=== PATIENT | male | born 1975 | race Caucasian/White ===

== ENCOUNTER 2020-01-04 18:25 | Emergency (ER) | payer BC ==
[2020-01-04 18:39] VITALS: BP 125/90; PULSE 87; TEMP 99.1; BMI 29.7
[2020-01-04] MEDS ORDERED: IBUPROFEN 600 MG TABLET (FP) PO ONE (18:43)
--- NOTE | 2020-01-04 18:52 | PDOC ---
History of Present Illness - General Chief Complaint: Headache Stated Complaint: FEVER & COUGH Time Seen by Provider: 01/04/20 18:28 History Source: Patient Exam Limitations: No Limitations Past History - Past Medical History Allergies/Adverse Reactions: Allergies Allergy/AdvReac Type Severity Reaction Status Date / Time No Known Allergies Allergy Verified 01/04/20 18:39 Asthma: Yes Cancer: Yes ([facility]ON) COPD: No - Immunization History Immunization Up to Date: Yes - Psycho Social/Smoking Cessation Hx Smoking History: Never smoked Have you smoked in the past 12 months: No Information on smoking cessation initiated: No Hx Alcohol Use: No Drug/Substance Use Hx: No *Physical Exam - Vital Signs Last Vital Signs Temp Pulse Resp BP Pulse Ox 99.1 F 87 17 125/90 97 01/04/20 18:28 01/04/20 18:28 01/04/20 18:28 01/04/20 18:28 01/04/20 18:28 - Physical Exam General Appearance: No: Apparent Distress HEENT: positive: Normal Voice, Nasal Congestion (minimal). negative: Muffled/Hoarse voice, Pharyngeal Erythema, Tonsillar Exudate, Tonsillar Erythema, Rhinorrhea Neck: positive: Supple. negative: Rigid Respiratory/Chest: positive: Lungs Clear, Normal Breath Sounds. negative: Respiratory Distress Cardiovascular: positive: Regular Rhythm, Regular Rate, S1, S2. negative: Murmur Gastrointestinal/Abdominal: positive: Normal Bowel Sounds, Soft. negative: Tender, Distended, Guarding, Rebound Integumentary: positive: Normal Color Neurologic: positive: Alert Medical Decision Making - Medical Decision Making 44 y/o M hx of HIV, asthma presents with fever x 3 days (Tmax 100.6). Went to urgent care today, where he had temp of 100.2 (not given any meds) and told to come to ED for possible r/o meningitis. Denies sore throat, cough, sob, cp, abd pain,n/v/d, urinary sxs, neck stiffness, recent travel. Denies possible contact with anyone who had COVID19. Did not take any antipyretics today Temp checked here twice and it is 99.1 Patient has not taken any antipyretics today, appears well, with no concerns for meningitis Also unlikely COVID given afebrile with no other symptoms D/W Dr. Verduzco - agrees with no need for COVID testing Patient with no other sxs Stable for dc Return precautions given 01/04/20 18:44 Discharge - Discharge Information Problems reviewed: Yes Clinical Impression/Diagnosis: Viral URI Condition: Stable Disposition: HOME - Admission No - Additional Discharge Information Prescription Drug Monitoring Program (I-STOP) results: I-STOP not reviewed - Follow up/Referral - Patient Discharge Instructions Patient Printed Discharge Instructions: DI for Viral Upper Respiratory Infection -- Adult Additional Instructions: Please see attached instructions - Post Discharge Activity
== END 2020-01-04 18:59 | disposition home or self-care (01) ==
LOC: JER 18:25
DX: J06.9 Acute upper respiratory infection, unspecified (principal); B97.89 Other viral agents as the cause of diseases classified elsewhere; J45.909 Unspecified asthma, uncomplicated; Z21 Asymptomatic human immunodeficiency virus [HIV] infection status; Z85.038 Personal history of other malignant neoplasm of large intestine
CPT/HCPCS: 99282-25

== ENCOUNTER 2020-09-07 05:08 | Day surgery (SDC) | payer BC ==
[2020-09-06 13:22] VITALS: BMI 30.4
[2020-09-07 12:01] VITALS: TEMP 98.4
[2020-09-07 12:58] VITALS: BP 118/80; PULSE 52
== END 2020-09-07 12:58 | disposition home or self-care (01) ==
LOC: JASU-ENDO 05:08
PROVIDERS: ATTEND Internal Medicine Gastroenterology
PROC: 0DBP8ZX Excision of Rectum, Via Natural or Artificial Opening Endoscopic, Diagnostic (ICD-10-PCS; principal; 2020-09-07 10:30)
DX: Z08 Encounter for follow-up examination after completed treatment for malignant neoplasm (principal); Z85.038 Personal history of other malignant neoplasm of large intestine; K62.6 Ulcer of anus and rectum; Z86.711 Personal history of pulmonary embolism; Z86.19 Personal history of other infectious and parasitic diseases; Z98.0 Intestinal bypass and anastomosis status
CPT/HCPCS: 88305-TC

== ENCOUNTER 2020-09-19 17:22 | Emergency (ER) | payer BC ==
[2020-09-19 17:54] VITALS: BP 114/94; PULSE 76; BMI 30.4
[2020-09-19] MEDS ORDERED: METHOCARBAMOL 500 MG TABLET PO ONE (18:30)
[2020-09-19] MEDS ORDERED: KETOROLAC TROMETHAMINE 30 MG/1 ML VIAL IM ONE (18:30)
[2020-09-19] MEDS ORDERED: METHOCARBAMOL 500 MG TABLET ONE (18:33)
[2020-09-19] MEDS ORDERED: KETOROLAC TROMETHAMINE 30 MG/1 ML VIAL ONE (18:33)
[2020-09-19] MEDS ORDERED: LIDOCAINE 5% TOPICAL PATCH ONE (18:36)
[2020-09-19] MEDS ORDERED: LIDOCAINE 5% TOPICAL PATCH TP ONE (18:36)
== END 2020-09-19 18:49 | disposition home or self-care (01) ==
LOC: JERFT 17:22
PROC: 3E0233Z Introduction of Anti-inflammatory into Muscle, Percutaneous Approach (ICD-10-PCS; principal; 2020-09-19)
DX: M54.42 Lumbago with sciatica, left side (principal)
CPT/HCPCS: 99284-25

== ENCOUNTER 2021-06-13 22:11 | Emergency (ER) | payer BC ==
[2021-06-13 23:06] VITALS: BMI 30.7
[2021-06-13] MEDS ORDERED: ACETAMINOPHEN 500 MG TABLET (FP) PO ONE (23:46)
[2021-06-14] MEDS ORDERED: SODIUM CHLORIDE IV ONE (00:20)
[2021-06-14] MEDS ORDERED: VANCOMYCIN 1 GM in D5W (PRE-DOCKED) 1,000 MG/250 ML IVPB ONE (00:34)
[2021-06-14] MEDS ORDERED: PIPERACILLIN/TAZOB 4.5 GM 4.5 GM in DEXTROSE 5%-WATER 100 ML IVPB ONE (00:34)
[2021-06-14] MEDS ORDERED: ACETAMINOPHEN INJECTION 100 ML IVPB ONE (00:54)
[2021-06-14 01:01] LABS: BASO % 0.6 % (0-2.0); EOS % 0.1 % (0-4.5); HEMATOCRIT 43.4 % (35.4-49); HEMOGLOBIN 14.7 GM/dL (11.7-16.9); LYMPH % 17.1 % (8-40); MCH 28.4 pg (25.7-33.7); MCHC 33.8 g/dl (32.0-35.9); MEAN CELL VOLUME 84.1 fl (80-96); MONO % 10.4 % (3.8-10.2); NEUT % 71.8 % (42.8-82.8); PLATELET COUNT 240 10^3/uL (134-434); RBC 5.16 M/mm3 (4.00-5.60); WHITE BLOOD COUNT 12.1 K/mm3 (4.0-10.0)
[2021-06-14 01:05] LABS: INR 1.13 (0.83-1.09); PROTHROMBIN TIME (PATIENT) 13.9 SEC (9.7-13.0)
[2021-06-14] MEDS ORDERED: ACETAMINOPHEN 1000 MG/100 ML VIAL (NON FORMULARY) IVPB ONE (01:07)
[2021-06-14 01:08] LABS: ACTIVATED PTT 32.6 SECONDS (25.2-36.5)
[2021-06-14] MEDS ORDERED: VANCOMYCIN 1 GRAM (PRE-DOCKED) 1,000 MG/250 ML BAG IVPB ONE (01:10)
[2021-06-14 01:17] LABS: CHLORIDE 103 mmol/L (98-107); SODIUM 137 mmol/L (136-145)
[2021-06-14] MEDS ORDERED: PIPERACILLIN/TAZOB 4.5 GM 4.5 GM/100 ML BAG IVPB ONE (01:18)
[2021-06-14 01:19] LABS: CALCIUM 9.1 mg/dL (8.5-10.1)
[2021-06-14 01:20] LABS: ALBUMIN 3.8 g/dl (3.4-5.0); ANION GAP 10 MMOL/L (8-16); BLOOD UREA NITROGEN 18.6 mg/dL (7-18); CO2 24 mmol/L (21-32); GLUCOSE,RANDOM 111 mg/dL (74-106)
[2021-06-14 01:23] LABS: CREATININE 1.3 mg/dL (0.55-1.3); SGOT/AST 11 U/L (15-37); SGPT/ALT 26 U/L (13-61)
[2021-06-14 01:24] LABS: BILIRUBIN,TOTAL 0.4 mg/dL (0.2-1)
[2021-06-14 01:25] LABS: TOT PROT 7.9 g/dl (6.4-8.2)
[2021-06-14 01:26] LABS: ALK PHOS 99 U/L (45-117)
[2021-06-14 02:51] LABS: URINE APPEARANCE CLEAR; URINE BILIRUBIN NEGATIVE (NEGATIVE); URINE COLOR YELLOW; URINE GLUCOSE (UA) NEGATIVE (NEGATIVE); URINE KETONE NEGATIVE (NEGATIVE); URINE LEUK ESTERASE NEGATIVE (NEGATIVE); URINE NITRITE NEGATIVE (NEGATIVE); URINE PROTEIN NEGATIVE (NEGATIVE); URINE UROBILINOGEN 0.2 mg/dL (0.2-1.0)
[2021-06-14] MEDS ORDERED: KETOROLAC TROMETHAMINE 30 MG/1 ML VIAL IVPUSH ONE (07:44)
[2021-06-14] MEDS ORDERED: KETOROLAC TROMETHAMINE 30 MG/1 ML VIAL ONE (07:55)
[2021-06-14 10:38] VITALS: BP 124/81; PULSE 77; TEMP 98
== END 2021-06-14 10:20 | disposition short-term general hospital (02) ==
LOC: JER 22:11
PROC: 3E033GC Introduction of Other Therapeutic Substance into Peripheral Vein, Percutaneous Approach (ICD-10-PCS; principal; 2021-06-13)
DX: M54.2 Cervicalgia (principal); R50.9 Fever, unspecified; B20 Human immunodeficiency virus [HIV] disease
CPT/HCPCS: 36415; 70491-TC; 71045-TC-FY; 80053; 81003; 83605; 84484; 85025; 85610; 85730; 87040; 87086; 87880; 93005; 93010; 99285-25; C9803; J0131; U0003; U0005

== ENCOUNTER 2022-02-27 16:53 | Emergency (ER) | payer OTHER ==
[2022-02-27 17:27] VITALS: BP 120/72; PULSE 75; TEMP 98.7; BMI 31.0
== END 2022-02-27 18:42 | disposition home or self-care (01) ==
LOC: JER 16:53
DX: R05.1 Acute cough (principal); R09.81 Nasal congestion; Z11.52 Encounter for screening for COVID-19
CPT/HCPCS: 0241U-QW; 87807; 99283-25; C9803-CS; U0003; U0005

== ENCOUNTER 2023-04-06 17:10 | Emergency (ER) | payer BC, OTHER ==
[2023-04-06 17:18] VITALS: BP 128/83; PULSE 75; RESP 18; TEMP 97.8; BMI 30.5
[2023-04-06] MEDS ORDERED: PENICILLIN G BENZATHINE 2,400,000 UNIT/4 ML PFS IM ONE (18:51)
[2023-04-06] MEDS ORDERED: PENICILLIN G BENZATHINE 1,200,000 UNIT/2 ML PFS IM ONE ×2 (18:55→18:56)
== END 2023-04-06 19:50 | disposition home or self-care (01) ==
LOC: JERFT 17:10
DX: A53.9 Syphilis, unspecified (principal)
CPT/HCPCS: 99284-25

== ENCOUNTER 2023-12-18 15:48 | Emergency (ER) | payer BC, OTHER ==
[2023-12-18 16:13] VITALS: RESP 18; BMI 29.5
[2023-12-18] MEDS ORDERED: MAG HYDROX/AL HYDROX/SIMETH 30 ML UNIT-DOSE CUP ONE (17:58)
[2023-12-18] MEDS ORDERED: FAMOTIDINE 20 MG/50 ML IVPB 20 MG/50 ML MG IVPB ONE (17:59)
[2023-12-18 18:12] LABS: BASO % 0.4 % (0-2.0); EOS % 1.6 % (0-4.5); HEMATOCRIT 41.4 % (35.4-49); HEMOGLOBIN 14.4 GM/dL (11.7-16.9); LYMPH % 39.8 % (8-40); MCH 29.6 pg (25.7-33.7); MCHC 34.8 g/dl (32.0-35.9); MEAN CELL VOLUME 85.1 fl (80-96); MONO % 9.3 % (3.8-10.2); NEUT % 48.9 % (42.8-82.8); PLATELET COUNT 265 10^3/uL (134-434); RBC 4.86 M/mm3 (4.00-5.60); RDW 13.4 % (11.9-15.9); WHITE BLOOD COUNT 7.7 K/mm3 (4.0-10.0)
[2023-12-18] MEDS: FAMOTIDINE 20 MG/50 ML IVPB 20 MG/50 ML MG IVPB ONE (18:31)
[2023-12-18] MEDS: MAG HYDROX/AL HYDROX/SIMETH 30 ML UNIT-DOSE CUP PO ONE (18:31)
[2023-12-18 18:46] LABS: POTASSIUM 3.9 mmol/L (3.5-5.1)
[2023-12-18 18:48] LABS: ALBUMIN 3.5 g/dl (3.4-5.0); CALCIUM 8.9 mg/dL (8.5-10.1)
[2023-12-18 18:49] LABS: BLOOD UREA NITROGEN 11.4 mg/dL (7-18)
[2023-12-18 18:51] LABS: CREATININE 0.9 mg/dL (0.55-1.3)
[2023-12-18 18:53] LABS: BILIRUBIN,TOTAL 0.3 mg/dL (0.2-1); TOT PROT 6.8 g/dl (6.4-8.2)
[2023-12-18 23:09] VITALS: BP 122/79; PULSE 77; TEMP 98.2
[2023-12-18 23:54] LABS: PH,URINE 5.5 (5.0-8.0); URINE APPEARANCE Clear; URINE BILIRUBIN Negative (NEGATIVE); URINE COLOR Yellow; URINE GLUCOSE (UA) Negative (NEGATIVE); URINE KETONE Negative (NEGATIVE); URINE LEUK ESTERASE Negative (NEGATIVE); URINE NITRITE Negative (NEGATIVE); URINE PROTEIN Negative (NEGATIVE)
== END 2023-12-19 01:10 | disposition home or self-care (01) ==
LOC: JER 15:48
PROC: 3E033GC Introduction of Other Therapeutic Substance into Peripheral Vein, Percutaneous Approach (ICD-10-PCS; principal; 2023-12-18)
DX: R10.13 Epigastric pain (principal); R10.33 Periumbilical pain; R11.10 Vomiting, unspecified; R14.0 Abdominal distension (gaseous); K52.9 Noninfective gastroenteritis and colitis, unspecified
CPT/HCPCS: 36415; 74177-TC; 80053; 81003; 83690; 84484; 85025; 87086; 93005; 93010; 99285-25

== ENCOUNTER 2024-08-25 05:23 | Day surgery (SDC) | payer BC ==
[2024-08-21 13:34] VITALS: BMI 32.1
[2024-08-25] MEDS ORDERED: HEPARIN NA (PORCINE) 5,000 UNITS/ML 1ML VIAL ONE (13:35)
[2024-08-25] MEDS ORDERED: BUPIVACAINE HCL/PF 0.25% (2.5MG/ML) 10 ML VIAL ONE (13:35)
[2024-08-25] MEDS ORDERED: LIDOCAINE HCL/PF 2% SDV 5ML VIAL ONE (13:41)
[2024-08-25] MEDS ORDERED: PROPOFOL 20 ML ONE (13:42)
[2024-08-25] MEDS ORDERED: ROCURONIUM BROMIDE 50 MG/5 ML SYRINGE ONE (13:42)
[2024-08-25] MEDS ORDERED: MIDAZOLAM HCL 2 MG/2 ML SINGLE DOSE VIAL ONE (13:42)
[2024-08-25] MEDS ORDERED: ONDANSETRON 4 MG/2 ML VIAL IVPUSH PRN (13:48)
[2024-08-25] MEDS ORDERED: LACTATED RINGERS SOLUTION 1,000 ML IV SCH (14:00)
[2024-08-25] MEDS: ceFAZolin SODIUM 1 GM VIAL IVPB ONE (14:55)
[2024-08-25] MEDS ORDERED: ceFAZolin SODIUM 1 GM VIAL ONE (14:55)
[2024-08-25] MEDS ORDERED: DEXAMETHASONE SOD PHOSPHATE 4 MG/1 ML VIAL ONE (15:09)
[2024-08-25] MEDS ORDERED: ONDANSETRON 4 MG/2 ML VIAL ONE (16:55)
[2024-08-25] MEDS ORDERED: SUGAMMADEX SODIUM 200 MG/2 ML VIAL ONE (16:55)
[2024-08-25] MEDS ORDERED: ACETAMINOPHEN INJECTION 100 ML ONE (16:58)
[2024-08-25 19:00] VITALS: RESP 16; TEMP 97.7
[2024-08-25] MEDS ORDERED: oxyCODONE HCL 5 MG TABLET ONE (19:18)
[2024-08-25] MEDS: oxyCODONE HCL 5 MG TABLET PO PRN (19:19)
[2024-08-25 20:24] VITALS: BP 137/83; PULSE 75
[2024-08-25] MEDS ORDERED: ACETAMINOPHEN 325 MG TABLET (FP) PO SCH (21:00)
[2024-08-26] MEDS ORDERED: DARUNAVIR 800 MG/COBICISTAT 150MG TABLET PO SCH (10:00)
[2024-08-26] MEDS ORDERED: DOLUTEGRAVIR SODIUM 50 MG TABLET (NON-FORMULARY) PO SCH (10:00)
== END 2024-08-25 20:29 | disposition home or self-care (01) ==
LOC: JASU-SURG 05:23
PROVIDERS: ATTEND Surgery
PROC: 8E0W4CZ Robotic Assisted Procedure of Trunk Region, Percutaneous Endoscopic Approach (ICD-10-PCS; 2024-08-25)
PROC: 0WUF4JZ Supplement Abdominal Wall with Synthetic Substitute, Percutaneous Endoscopic Approach (ICD-10-PCS; principal; 2024-08-25 12:00)
DX: K43.9 Ventral hernia without obstruction or gangrene (principal); E78.5 Hyperlipidemia, unspecified; J45.909 Unspecified asthma, uncomplicated
CPT/HCPCS: 94760; C1781; J0131; J1644